=== PATIENT | female | born 1985 | race Caucasian/White ===

== ENCOUNTER 2019-04-27 10:45 | Emergency (ER) | payer OTHER ==
[~2019-04-27] VITALS: Ht 162.6 cm; Wt 85.0 kg
[2019-04-27] MEDS ORDERED: CELEXA20 MG PO (10:52)
[2019-04-27 11:21] LABS: ABSOLUTE BASOPHILS 0.1 thou/uL (0.0-0.2); ABSOLUTE LYMPHOCYTES 1.9 thou/uL (0.8-5.3); ABSOLUTE MONOCYTES 0.6 thou/uL (0.0-1.2); ABSOLUTE NEUTROPHILS 3.7 thou/uL (1.6-8.1); EOSINOPHILS 0.6 %; HEMATOCRIT 36.7 % (37.0-47.0); HEMOGLOBIN 12.3 gm/dL (12.0-15.0); LYMPHOCYTES 30.2 %; MCH 27.5 pg (26.0-34.0); MCHC 33.5 g/dL (28.0-37.0); MCV 81.9 fL (80.0-100.0); MONOCYTES 9.1 %; MPV 8.5 fl. (7.2-11.1); NUCLEATED RBCS 0 /100WBC; PLATELET COUNT* 297 thou/uL (150-400); POLYS 59.1 %; RBC 4.48 mil/uL (4.20-5.00); RDW-CV 14.3 % (10.5-14.5); WBC 6.2 thou/uL (4.0-11.0)
[2019-04-27 11:35] LABS: ANION GAP 8 mmol/L (7-16); BUN 8 mg/dL (7-18); CALCIUM 8.7 mg/dL (8.5-10.1); CHLORIDE 103 mmol/L (98-107); CO2 26 mmol/L (21-32); CREATININE 0.9 mg/dL (0.6-1.3); GLUCOSE 91 mg/dL (70-99); POTASSIUM 3.9 mmol/L (3.5-5.1); SODIUM 137 mmol/L (136-145)
[2019-04-27 11:44] LABS: ALBUMIN 3.5 g/dL (3.4-5.0); ALKALINE PHOSPHATASE 47 U/L (46-116); LIPASE 118 U/L (73-393); SGOT 15 U/L (15-37); SGPT 23 U/L (30-65); TOTAL BILIRUBIN 0.3 mg/dL (<0.1-1.0); TOTAL PROTEIN 7.5 g/dL (6.4-8.2); TROPONIN-I LEVEL <0.06 ng/mL (<0.06)
[2019-04-27] MEDS ORDERED: NORCO 5-325 TA1 EAC1 PO (12:49)
[2019-04-27 12:57] VITALS: BP 126/58
--- NOTE | 2019-04-28 12:22 | EKG ---
[place] [address] ELECTROCARDIOGRAM REPORT Name: CODY WINCHESTER Room: [facility]#: [id number] Admission: 04/27/19 Attend Phys: Discharge: 04/27/19 Date of : 83 Report #: [id number] THIS REPORT FOR: //name// 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
== END 2019-04-27 12:59 | disposition home or self-care (01) ==
LOC: M.ERS 10:45
PROVIDERS: Emergency Medicine Emergency Medical Services
DX: R07.89 Other chest pain (principal); F41.9 Anxiety disorder, unspecified; Z88.6 Allergy status to analgesic agent